=== PATIENT | male | born 1930 | race Caucasian/White ===

== ENCOUNTER 2018-08-07 03:59 | Emergency (ER) | payer MEDICARE, BC ==
--- NOTE | 2018-08-07 04:32 | EDM.PDOC ---
ED HPI GENERAL MEDICAL PROBLEM - General Chief Complaint: General Stated Complaint: [facility] Time Seen by Provider: 08/07/18 04:11 Source of Information: Reports: Patient, Family (Son), RN Notes Reviewed History Limitations: Reports: Physical Impairment (Very HO H) - History of Present Illness INITIAL COMMENTS - FREE TEXT/NARRATIVE: The patient is brought by ambulance for evaluation of left shoulder, right knee , and neck pain that began 2 days ago, 08/05/2018. His left shoulder and neck pain are new, and primarily present if the patient moves, whereas his right knee pain is chronic, although is now worse than usual, and also made worse with movement. No new injury. No recent fever, although the patient was diagnosed with a urinary tract yesterday and started on oral ciprofloxacin - the patient has BPH and needs to self catheterize. The patient has been taking [id number] Tylenol, and took a single tablet of leftover meperidine to treat his pain. He has not taken any NSAIDs. Despite chronic right knee pain, the patient has not previously had an evaluation, including x-rays, of his right knee. The patient's PCP is Dr. Murray, in [place], although he will also see Adriana Sanabria or Kimber Adkins at the [facility]. Left Arm Pain Score (Numeric/FACES): 5 Right Knee Pain Score (Numeric/FACES): 4 - Related Data Allergies Allergy/AdvReac Type Severity Reaction Status Date / Time No Known Allergies Allergy Verified 08/07/18 04:11 Home Meds: Home Meds Ciprofloxacin [Ciprofloxacin HCl] 500 mg PO BID 08/07/18 [History] Furosemide 40 mg PO DAILY 08/07/18 [History] Pindolol 5 mg PO BID PRN 08/07/18 [History] amLODIPine Besylate [Amlodipine Besylate] 10 mg PO DAILY 08/07/18 [History] Past Medical History HEENT History: Reports: Hard of Hearing (wears hearing aids) Cardiovascular History: Reports: Hypertension Genitourinary History: Reports: BPH Musculoskeletal History: Reports: Osteoarthritis - Past Surgical History HEENT Surgical History: Reports: Cataract Surgery, Eye Surgery (Right cornea transplant) GI Surgical History: Reports: Appendectomy Male Surgical History: Reports: Prostatectomy Social & Family History - Tobacco Use Smoking Status *Q: Former Smoker Years of Tobacco use: 54 Packs/Tins Daily: 1 Month/Year Tobacco Last Used: Quit around 1999 - Caffeine Use Caffeine Use: Reports: None - Alcohol Use Alcohol Use History: Yes Alcohol Use Frequency: Socially - Recreational Drug Use Recreational Drug Use: No - Living Situation & Occupation Living situation: Reports: , Alone Occupation: Retired ED ROS GENERAL - Review of Systems Review Of Systems: ROS reveals no pertinent complaints other than HPI. ED EXAM, GENERAL - Physical Exam Exam: See Below Exam Limited By: No Limitations General Appearance: Alert, WD/WN, No Apparent Distress Eye Exam: Bilateral Eye: EOMI, Normal Inspection Ears: Normal External Exam, Hearing Loss Nose: Normal Inspection Throat/Mouth: Normal Inspection, Normal Lips, Normal Voice, No Airway Compromise Head: Atraumatic, Normocephalic Neck: Normal Inspection, Limited Range of Motion Extremities: Other (The left shoulder may be somewhat swollen, when compared to the right, although no other visible abnormality, such as erythema, ecchymosis, or abrasion. No tenderness to palpation of the left shoulder, however, the patient reports pain "all over" with PROM, and states that the pain extends down his left upper extremity. Neurovascular status of the left upper extremity is intact. The right knee is swollen when compared to the left, although no other visible abnormality, such as erythema, ecchymosis, or abrasion. No significant tenderness to palpation of the right knee, however, there is significant pain to even minimal PROM. Neurovascular status of the right lower extremity is intact.) Neurological: Alert, Normal Cognition, No Motor/Sensory Deficits Psychiatric: Normal Affect Skin Exam: Warm, Dry, Intact, Normal Color, No Rash Course - Vital Signs Last Recorded V/S: Last Vital Signs Temp 36.3 C 08/07/18 04:05 Pulse 78 08/07/18 04:05 Resp 18 08/07/18 04:05 BP 142/80 H 08/07/18 04:05 Pulse Ox 80 L 08/07/18 04:05 - Orders/Labs/Meds Orders: Active Orders 24 hr Category Date Time Status Knee Min 4V Rt [CR] Stat Exams 08/07/18 04:25 Taken Shoulder Comp Lt [CR] Stat Exams 08/07/18 04:25 Taken CBC WITH MANUAL DIFF [HEME] Stat Lab 08/07/18 04:35 Results Ibuprofen [Motrin] Med 08/07/18 05:25 Once 600 mg PO ONETIME ONE Labs: Laboratory Tests 08/07/18 08/07/18 Range/Units 04:35 04:35 WBC 8.05 (4.23-9.07) K/mm3 RBC 4.26 L (4.63-6.08) M/mm3 Hgb 13.1 L (13.7-17.5) gm/L Hct 39.5 L (40.1-51.0) % MCV 92.7 H (79.0-92.2) fl MCH 30.8 (25.7-32.2) pg MCHC 33.2 (32.2-35.5) g/dl RDW Std Deviation 46.5 H (35.1-43.9) fL Plt Count 154 L (163-337) K/mm3 MPV 10.4 (9.4-12.3) fl Sodium 137 (136-145) mEq/L Potassium 3.7 (3.5-5.1) mEq/L Chloride 102 (98-107) mEq/L Carbon Dioxide 23 (21-32) mEq/L Anion Gap 15.7 H (5-15) BUN 15 (7-18) mg/dL Creatinine 1.0 (0.7-1.3) mg/dL Est Cr Clr Drug Dosing 61.03 mL/min Estimated GFR (MDRD) > 60 (>60) mL/min BUN/Creatinine Ratio 15.0 (14-18) Glucose 113 (83-115) mg/dL Calcium 9.0 (8.5-10.1) mg/dL Total Bilirubin 1.0 (0.2-1.0) mg/dL AST 11 L (15-37) U/L ALT 14 L (16-63) U/L Alkaline Phosphatase 83 (46-116) U/L C-Reactive Protein 13.0 H* (<1.0) mg/dL Total Protein 7.2 (6.4-8.2) g/dl Albumin 3.3 L (3.4-5.0) g/dl Globulin 3.9 gm/dL Albumin/Globulin Ratio 0.9 L (1-2) - Re-Assessments/Exams Free Text/Narrative Re-Assessment/Exam: 08/07/18 04:38 Without a new injury, I suspect that the pain that the patient has experiencing in his neck, left shoulder, and right knee, is related to inflammation, possibly related to his UTI. To that end, I have ordered x-rays of his left shoulder and right knee, which I anticipate will demonstrate arthritis, as well as blood work which may show signs of inflammation. 08/07/18 05:10 3-view radiographs of the left shoulder appear to show advanced degenerative changes. No fracture or dislocation identified. Formal read per the Radiologist pending. 4-view radiographs of the right knee appear to show advanced degenerative changes. No fracture or dislocation identified. Formal read per the Radiologist pending. 08/07/18 05:25 X-ray and test results discussed with the patient and his son. While the patient does not have an elevated WBC count, his CRP has returned substantially elevated at 13.0, consistent with systemic inflammation that I suspect is causing exacerbation of the patient's previously existing arthritis. At this time, I am recommending the patient take qiuh-npe-[id number] ibuprofen instead of Tylenol, and I suspect that his pain will improve as his urinary tract infection is treated. The patient may also be a candidate for steroid injection , therefore will refer the patient to Dr. Vazquez for further evaluation. Departure - Departure Time of Disposition: 05:27 Disposition: Home, Self-Care 01 Condition: Fair Clinical Impression: Arthritis of left shoulder region, Arthritis of neck, Arthritis of right knee - Discharge Information *PRESCRIPTION DRUG MONITORING PROGRAM REVIEWED*: Not Applicable *COPY OF PRESCRIPTION DRUG MONITORING REPORT IN PATIENT [place]: Not Applicable Referrals: Adriana Sanabria NP [Primary Care Provider] - Chuck Vazquez MD [Physician] - Trever Murray MD [Ordering Only Provider] - Forms: ED Department Discharge Additional Instructions: You were seen in the emergency room for neck, left shoulder, and right knee pain over the past 2 days. Workup in the ER included blood work and x-rays of her left shoulder and right knee. The x-rays showed advanced arthritis of your shoulder and knee, and your CRP, a marker of inflammation, was significantly elevated at 13.0. Based on your history, physical examination, and ER tests, the pain in your joints is most likely due to an exacerbation of the inflammation in her joints, likely related to your urinary tract infection. Your joint pain should improve as your urinary tract infection is treated, but in the meantime, we recommend that you take [id number]-[id number] ibuprofen, 2-3 tablets (400-600 mg) every 8 hours, with food, as needed for discomfort. We also recommend that you follow-up with the Orthopedic Surgeon Dr. Chuck Vazquez, to discuss the possibility of a steroid injection in one or more of your joints. If any other problems, please do not hesitate to return to the ER. - My Orders Last 24 Hours: My Active Orders 08/07/18 04:25 Knee Min 4V Rt [CR] Stat Shoulder Comp Lt [CR] Stat 08/07/18 04:35 CBC WITH MANUAL DIFF [HEME] Stat 08/07/18 05:25 Ibuprofen [Motrin] 600 mg PO ONETIME ONE - Assessment/Plan Last 24 Hours: My Active Orders 08/07/18 04:25 Knee Min 4V Rt [CR] Stat Shoulder Comp Lt [CR] Stat 08/07/18 04:35 CBC WITH MANUAL DIFF [HEME] Stat 08/07/18 05:25 Ibuprofen [Motrin] 600 mg PO ONETIME ONE
[2018-08-07] MEDS ORDERED: Ibuprofen 600 MG Tab PO ONE (05:25)
--- NOTE | 2018-08-07 07:05 | CR ---
Right knee: Four views of the right knee were obtained. Comparison: No prior knee exam. Moderate medial joint space narrowing is seen. Chondrocalcinosis is noted within the medial and lateral joints. Vascular calcification is seen. Bony structures are osteopenic. Small joint effusion is seen. No acute fracture, dislocation or other bony abnormality is identified. Impression: 1. Degenerative change and chondrocalcinosis. 2. Small joint effusion and other incidental findings. Diagnostic code #2
--- NOTE | 2018-08-07 07:05 | CR ---
Left shoulder: Three views of the left shoulder were obtained. Comparison: No previous study. Joint space narrowing is noted within the glenohumeral joint with mild inferior spurring. Osteopenia is seen. No acute fracture or dislocation is seen. Impression: 1. Degenerative change within the glenohumeral joint. 2. Osteopenia. Diagnostic code #2
== END 2018-08-07 06:00 | disposition home or self-care (01) ==
LOC: JD.ED 03:59
DX: M19.012 Primary osteoarthritis, left shoulder (principal); M47.892 Other spondylosis, cervical region; M17.11 Unilateral primary osteoarthritis, right knee; I10 Essential (primary) hypertension; Z87.891 Personal history of nicotine dependence; Z79.899 Other long term (current) drug therapy
CPT/HCPCS: 36415; 73030; 73564; 80053; 85007; 85027; 86140; 99284; A9270

== ENCOUNTER 2018-08-08 20:26 | Observation (INO) | payer MEDICARE, BC ==
[2018-08-08] MEDS ORDERED: cefTRIAXone 1 GM in Sodium Chloride 0.9% 100 ML IV ONE (21:02)
[2018-08-08] MEDS ORDERED: Sulfamethoxazole/Trimethoprim 800-160 MG Tab PO ONE (21:57)
[2018-08-08] MEDS ORDERED: Ibuprofen 600 MG Tab PO ONE (21:57)
--- NOTE | 2018-08-08 22:01 | EDM.PDOC ---
ED HPI GENERAL MEDICAL PROBLEM - General Chief Complaint: Genitourinary Problem Stated Complaint: INFECTION Time Seen by Provider: 08/08/18 20:47 Source of Information: Reports: Patient, Family (Son, [id number]), RN Notes Reviewed History Limitations: Reports: No Limitations Left Wrist Pain Score (Numeric/FACES): 7 - Related Data Allergies Allergy/AdvReac Type Severity Reaction Status Date / Time No Known Allergies Allergy Verified 08/08/18 20:46 Home Meds: Home Meds Ciprofloxacin [Ciprofloxacin HCl] 500 mg PO BID 08/07/18 [History] Furosemide 40 mg PO DAILY 08/07/18 [History] Pindolol 5 mg PO BID PRN 08/07/18 [History] amLODIPine Besylate [Amlodipine Besylate] 10 mg PO DAILY 08/07/18 [History] Past Medical History HEENT History: Reports: Hard of Hearing (wears hearing aids) Other HEENT History: uses ARNETT Cardiovascular History: Reports: Heart Murmur, Hypertension Genitourinary History: Reports: BPH Musculoskeletal History: Reports: Arthritis - Past Surgical History HEENT Surgical History: Reports: Cataract Surgery, Other (See Below) Social & Family History - Caffeine Use Caffeine Use: Reports: None - Living Situation & Occupation Living situation: Reports: , Alone Occupation: Retired Course - Vital Signs Last Recorded V/S: Last Vital Signs Temp 37.3 C 08/08/18 20:42 Pulse 73 08/08/18 20:42 Resp 16 08/08/18 20:42 BP 151/88 H 08/08/18 20:42 Pulse Ox 96 08/08/18 20:42 - Orders/Labs/Meds Meds: Medications Discontinued Medications Generic Name Dose Route Start Last Admin Trade Name Freq PRN Reason Stop Dose Admin Ceftriaxone Sodium 1 gm/ 100 mls @ 200 mls/hr 08/08/18 21:02 08/08/18 21:33 Sodium Chloride IV 08/08/18 21:31 200 mls/hr ONETIME ONE Administration Ibuprofen 600 mg 08/08/18 21:57 Motrin PO 08/08/18 21:58 ONETIME ONE Trimethoprim/Sulfamethoxazole 1 tab 08/08/18 21:57 Septra Ds PO 08/08/18 21:58 ONETIME ONE - Re-Assessments/Exams Free Text/Narrative Re-Assessment/Exam: 08/08/18 22:01 As was the case when I saw the patient yesterday morning, 08/07/2018, the patient has increased pain in numerous joints, that appears to be due to increased inflammation related to his urinary tract infection. Ibuprofen has been working for him, however, he has not taken any ibuprofen since noon today. Now that we know that the UTIs due to Escherichia coli, multiply susceptible, resistant to fluoroquinolones, the patient is receiving 1 g of Rocephin IV, and I will start oral Bactrim, as well. The patient's son and [id number] are concerned about the patient going home tonight, and considering the patient's age, I believe it is reasonable to keep him overnight to make sure that he is improving before being discharged home. His case was discussed with Dr. Magaña at 21:58. She agreed to place the patient into observation. Departure - Departure Time of Disposition: 22:05 Disposition: Refer to Observation Condition: Fair Clinical Impression: UTI (urinary tract infection), Arthritis of left shoulder region, Arthritis of neck, Arthritis of right knee - Discharge Information *PRESCRIPTION DRUG MONITORING PROGRAM REVIEWED*: Not Applicable *COPY OF PRESCRIPTION DRUG MONITORING REPORT IN PATIENT [place]: Not Applicable Referrals: Kimber Adkins PA-C [Primary Care Provider] -
[2018-08-09] MEDS ORDERED: Sodium Chloride 0.9% 1,000 ML ONE ×3 (00:03)
[2018-08-09] MEDS ORDERED: Ibuprofen 600 MG Tab ONE ×3 (04:40)
[2018-08-09] MEDS ORDERED: Ibuprofen 600 MG Tab PO PRN (08:24)
[2018-08-09] MEDS ORDERED: Temazepam 7.5 MG Cap PO PRN ×2 (08:25→09:32)
[2018-08-09] MEDS ORDERED: cefTRIAXone 2 GM in Sodium Chloride 0.9% 100 ML IV ONE ×2 (09:00→09:45)
--- NOTE | 2018-08-09 09:12 | PCM.HP ---
H&P History of Present Illness - General Date of Service: 08/09/18 Admit Problem/Dx: Admission Diagnosis/Problem Admission Diagnosis/Problem UTI (urinary tract infection), uncomplicated Source of Information: Patient, Provider - History of Present Illness Initial Comments - Free Text/Narative: 87 year old male with recently diagnosed UTI, started on Cipro as an outpatient. Reportedly called to return to our ED for reassessment and change in treatment plan, urine culture organism was resistant to Cipro. 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 The patient is admitted to obs with telemetry. He complains of joint discomfort, he has not taken his usual dose of a NSAID. Onset of Symptoms: Reports: Unknown/Unsure Duration of Symptoms: Reports: Day(s):, Getting Worse Location: Reports: Abdomen, Generalized Quality: Reports: Same as Previous Episode Severity: Moderate Improves with: Reports: Medication Worsens with: Reports: None Associated Symptoms: Reports: Weakness Left Wrist Pain Score (Numeric/FACES): 7 - Related Data Allergies/Adverse Reactions: Allergies Allergy/AdvReac Type Severity Reaction Status Date / Time No Known Allergies Allergy Verified 08/09/18 08:30 Home Medications: Home Meds Furosemide 40 mg PO DAILY 08/07/18 [History] Pindolol 5 mg PO BID PRN 08/07/18 [History] amLODIPine Besylate [Amlodipine Besylate] 10 mg PO DAILY 08/07/18 [History] Acyclovir 400 mg PO DAILY 08/09/18 [History] Ascorbic Acid/Ascorbate Sodium [Vitamin C 500 mg Wafer] 1,000 mg PO DAILY [History] Brimonidine Tartrate/Timolol [Combigan 0.2%-0.5% Eye Drops] 1 drop OP DAILY 08/25 [History] [place]-3 Fatty Acids/Fish Oil [Fish Oil 1,200 mg Softgel] 2,400 mg PO DAILY 08/09 [History] Prednisolone Acetate/Pf [Prednisolone Acet 1% Eye Drop] 1 drop OP BEDTIME [History] Past Medical History HEENT History: Reports: Hard of Hearing Other HEENT History: uses ARNETT- has a cochlear impant, upper denture Cardiovascular History: Reports: Heart Murmur, Hypertension Respiratory History: Reports: Other (See Below) Other Respiratory History: wears a cpap machine at night Genitourinary History: Reports: BPH, Other (See Below) Other Genitourinary History: pt self caths at home QID Musculoskeletal History: Reports: Arthritis Endocrine/Metabolic History: Reports: None - Infectious Disease History Infectious Disease History: Reports: Influenza - Past Surgical History HEENT Surgical History: Reports: Cataract Surgery Cardiovascular Surgical History: Reports: None Respiratory Surgical History: Reports: None GI Surgical History: Reports: Appendectomy Musculoskeletal Surgical History: Reports: None Social & Family History - Family History Family Medical History: Noncontributory - Tobacco Use Smoking Status *Q: Former Smoker Years of Tobacco use: 40 Used Tobacco, but Quit: No Second Hand Smoke Exposure: No - Caffeine Use Caffeine Use: Reports: Coffee - Recreational Drug Use Recreational Drug Use: No - Living Situation & Occupation Living situation: Reports: , Alone Occupation: Retired H&P Review of Systems - Review of Systems: Review Of Systems: See Below General: Reports: Weakness HEENT: Reports: No Symptoms Pulmonary: Reports: No Symptoms Cardiovascular: Reports: No Symptoms Gastrointestinal: Reports: No Symptoms Genitourinary: Reports: Frequency Musculoskeletal: Reports: No Symptoms Skin: Reports: No Symptoms Psychiatric: Reports: No Symptoms Neurological: Reports: No Symptoms Hematologic/Lymphatic: Reports: No Symptoms Immunologic: Reports: No Symptoms Exam - Exam Exam: See Below - Vital Signs Vital Signs: Last Vital Signs Temp 36.2 C 08/09/18 08:20 Pulse 55 L 08/09/18 08:20 Resp 24 H 08/09/18 08:20 BP 128/83 08/09/18 08:20 Pulse Ox 90 L 08/09/18 08:20 Weight: 106.413 kg - Exam Quality Assessment: DVT Prophylaxis General: Alert, Oriented, Cooperative HEENT: Conjunctiva Clear, Nares Patent, Normal Nasal Septum, Pupils Equal, Pupils Reactive, PERRLA Neck: Trachea Midline Lungs: Normal Respiratory Effort Cardiovascular: Regular Rate GI/Abdominal Exam: Normal Bowel Sounds, Soft, Non-Tender, No Organomegaly, No Distention (Male) Exam: Deferred Rectal (Males) Exam: Deferred Back Exam: Normal Inspection Extremities: Normal Inspection, Non-Tender, Normal Capillary Refill Skin: Warm Neurological: Cranial Nerves Intact, Normal Gait, Normal Speech Neuro Extensive - Mental Status: Alert, Oriented x3 Neuro Extensive - Motor, Sensory, Reflexes: CN II-XII Intact Psychiatric: Alert, Normal Affect, Normal Mood - Patient Data Result Diagrams: 08/09/18 06:48 08/09/18 06:48 Problem List Initiated/Reviewed/Updated: Yes Orders Last 24hrs: Active Orders 24 hr Category Date Time Status Admission Status [Patient Status] [ADT] Routine ADT 08/08/18 22:08 Active Full Liquid Diet [DIET] Diet 08/09/18 Lunch Active Ibuprofen [Motrin] Med 08/09/18 08:24 Active 600 mg PO Q8H PRN Temazepam [Restoril] Med 08/09/18 08:25 Active 7.5 mg PO BEDTIME PRN cefTRIAXone [Rocephin] 2 gm Med 08/09/18 09:00 Active Sodium Chloride 0.9% [Normal Saline] 100 ml IV ONETIME Code Status [Resuscitation Status] Routine Resus Stat 08/09/18 08:25 Ordered Medication Orders Ceftriaxone Sodium 2 gm/ (Sodium Chloride) 100 mls @ 200 mls/hr IV ONETIME ONE Stop: 08/09/18 09:29 Ibuprofen (Motrin) 600 mg PO Q8H PRN PRN Reason: Pain Temazepam (Restoril) 7.5 mg PO BEDTIME PRN PRN Reason: Sleep Assessment/Plan Comment:: Impression: Outpatient ATB failure for AUTI Arthritis with uncontrolled pain; LUE, Neck, RLE Chronic HTN BPH Query glaucoma Plan: IVF Continue Rocephin DC 24 hours to home Consult CM, PT/OT Home meds Daily labs DVT/GI prophylaxis MR from PCP.
[2018-08-09] MEDS ORDERED: 50% Dextrose in Water 50 ML Syringe IVPUSH PRN (10:14)
[2018-08-09] MEDS ORDERED: hydrALAZINE 20 MG/ML SDV IVPUSH PRN (10:14)
[2018-08-09] MEDS ORDERED: NS + KCl 20mEq/L 1,000 ML IV SCH (11:00)
[2018-08-09] MEDS ORDERED: Ketorolac 60 MG/2 ML SDV IM ONE (11:09)
[2018-08-09] MEDS ORDERED: HYDROmorphone 1 MG/ML Syringe IVPUSH PRN (11:10)
[2018-08-09] MEDS ORDERED: Ketorolac 60 MG/2 ML SDV ONE (11:11)
[2018-08-09] MEDS: Ketorolac 15 MG/ML SDV IVPUSH SCH ×2 (15:00→23:53)
[2018-08-09] MEDS: Potassium Chloride 20 MEQ Tab.ER PO SCH ×2 (15:01→21:19)
[2018-08-09] MEDS ORDERED: TIMOLOL OP SCH (15:30)
[2018-08-09] MEDS ORDERED: BRIMONIDINE TARTRATE OP SCH (15:30)
[2018-08-09] MEDS: Insulin Lispro 100 Units/ML 3 ML Vial SUBCUT SCH ×2 (18:03→21:55)
[2018-08-09] MEDS ORDERED: prednisoLONE Acetate 1% Ophth Susp 5 ML Bottle EYERT SCH (21:00)
[2018-08-09] MEDS: Ibuprofen 600 MG Tab PO PRN (21:19)
[2018-08-09] MEDS: Gabapentin 100 MG Cap PO SCH (21:19)
[2018-08-10] MEDS: Ketorolac 15 MG/ML SDV IVPUSH SCH (06:34)
[2018-08-10] MEDS: Insulin Lispro 100 Units/ML 3 ML Vial SUBCUT SCH ×2 (06:48→11:45)
[2018-08-10] MEDS: Ibuprofen 600 MG Tab PO PRN (08:41)
[2018-08-10] MEDS: Gabapentin 100 MG Cap PO SCH (08:43)
[2018-08-10] MEDS ORDERED: Timolol Maleate 0.5% Ophth Soln 5 ML Bottle EYERT SCH (09:00)
[2018-08-10] MEDS ORDERED: Brimonidine 0.2% Ophth Soln 5 ML Bottle EYERT SCH (09:00)
[2018-08-10] MEDS ORDERED: Acyclovir 200 MG Cap PO SCH (09:00)
[2018-08-10] MEDS ORDERED: Enoxaparin 40 MG/0.4 ML Syringe SUBCUT SCH (10:00)
[2018-08-10] MEDS ORDERED: Tamsulosin 0.4 MG Cap.ER PO SCH (10:00)
--- NOTE | 2018-08-10 11:26 | PCM.DCSUM1 ---
Discharge Summary - Hospital Course Free Text/Narrative:: 87 year old male presented after being informed that his UTI treatment was ineffective. The organism was resistant to the treatment. he was hydrated and received to days of IV Rocephin during his observation stay. The patient was DCd to home. he will follow up with his PCP who will likely prescribe OP PT as directed. HPI Initial Comments: 87 year old male with recently diagnosed UTI, started on Cipro as an outpatient. Reportedly called to return to our ED for reassessment and change in treatment plan, urine culture organism was resistant to Cipro. It is sensitive to Rocephin, it was started last night [employer]. The patient is admitted to obs with telemetry. He complains of joint discomfort, he has not taken his usual dose of a NSAID. Diagnosis: Stroke: No - Discharge Data Discharge Date: 08/10/18 Discharge Disposition: Home, Self-Care 01 Condition: Good - Patient Summary/Data Consults: Consultations 08/10/18 09:00 Consult to Physical Therapy [PT Evaluation and Treatment] [CONS] Routine 08/10/18 09:30 Consult to Occupational Therapy [OT Evaluation and Treatment] [CONS] Routine - Patient Instructions Diet: Heart Healthy Diet Activity: As Tolerated Driving: Do Not Drive Showering/Bathing: May Shower Notify Provider of: Fever, Increased Pain, Nausea and/or Vomiting - Discharge Plan *PRESCRIPTION DRUG MONITORING PROGRAM REVIEWED*: Not Applicable *COPY OF PRESCRIPTION DRUG MONITORING REPORT IN PATIENT [place]: Not Applicable Prescriptions/Med Rec: cephALEXin [Keflex] 500 mg PO Q8H #21 cap Ibuprofen [Motrin] 600 mg PO Q12H PRN #20 tablet PRN Reason: Pain Saccharomyces Boulardii [Florastor] 250 mg PO DAILY #14 cap Tamsulosin [Flomax] 0.4 mg PO PCBREAKFAST #30 cap.er Home Medications: Home Meds Furosemide 40 mg PO DAILY 08/07/18 [History] Pindolol 5 mg PO BID PRN 08/07/18 [History] amLODIPine Besylate [Amlodipine Besylate] 10 mg PO DAILY 08/07/18 [History] Acyclovir 400 mg PO DAILY 08/09/18 [History] Ascorbic Acid/Ascorbate Sodium [Vitamin C 500 mg Wafer] 1,000 mg PO DAILY [History] Brimonidine Tartrate/Timolol [Combigan 0.2%-0.5% Eye Drops] 1 drop OP DAILY 08/25 [History] Windfall-3 Fatty Acids/Fish Oil [Fish Oil 1,200 mg Softgel] 2,400 mg PO DAILY 08/09 [History] Prednisolone Acetate/Pf [Prednisolone Acet 1% Eye Drop] 1 drop OP BEDTIME [History] Ibuprofen [Motrin] 600 mg PO Q12H PRN #20 tablet 08/10/18 [Rx] Saccharomyces Boulardii [Florastor] 250 mg PO DAILY #14 cap 08/10/18 [Rx] Tamsulosin [Flomax] 0.4 mg PO PCBREAKFAST #30 cap.er 08/10/18 [Rx] cephALEXin [Keflex] 500 mg PO Q8H #21 cap 08/10/18 [Rx] Patient Handouts: Urinary Tract Infection, Adult, [id number], What You Need to Know About Osteoarthritis Referrals: Kimber Adkins PA-C [Primary Care Provider] - 08/18/18 9:00 am - Discharge Summary/Plan Comment DC Time >30 min.: No Discharge Summary/Plan Comment: Impression: 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 Chronic HTN BPH Query glaucoma Plan: IVF Rocephin-->change to Keflex 500 mg Q 8H DC 24 hours to home Consult CM, PT/OT Home meds Daily labs DVT/GI prophylaxis MR from PCP. - General Info Date of Service: 08/09/18 Functional Status: Reports: Pain Controlled, Tolerating Diet, Ambulating, Urinating - Review of Systems General: Reports: No Symptoms HEENT: Reports: No Symptoms Pulmonary: Reports: No Symptoms Cardiovascular: Reports: No Symptoms Gastrointestinal: Reports: No Symptoms Genitourinary: Reports: No Symptoms Musculoskeletal: Reports: No Symptoms Skin: Reports: No Symptoms Neurological: Reports: No Symptoms Psychiatric: Reports: No Symptoms - Patient Data Vitals - Most Recent: Last Vital Signs Temp 37.1 C 08/10/18 07:42 Pulse 72 08/10/18 07:42 Resp 18 08/10/18 07:42 BP 129/71 08/10/18 07:42 Pulse Ox 91 L 03/04/19 08:56 Weight - Most Recent: 111.629 kg I&O - Last 24 hours: Intake & Output 08/09/18 08/10/18 08/10/18 22:59 06:59 14:59 Intake Total 2006 836 360 Output Total 800 600 Balance 1207 236 360 Lab Results - Last 24 hrs: Laboratory Results - last 24 hr 08/09/18 08/09/18 08/09/18 Range/Units 12:37 17:31 21:30 POC Glucose 128 H 106 125 H (83-110) mg/dL 08/10/18 08/10/18 Range/Units 06:41 11:00 POC Glucose 114 H 112 H (83-110) mg/dL Med Orders - Current: Current Medications Acyclovir (Zovirax) 400 mg PO DAILY [facility] Last Admin: 08/10/18 08:42 Dose: 400 mg Brimonidine Tartrate (Alphagan 0.2% Ophth Soln) 0 ml EYERT DAILY [facility] Last Admin: 08/10/18 08:40 Dose: 1 drop Enoxaparin Sodium (Lovenox) 40 mg SUBCUT Q24H [facility] Last Admin: 08/10/18 10:02 Dose: 40 mg Gabapentin (Neurontin) 100 mg PO BID [facility] Last Admin: 08/10/18 08:43 Dose: 100 mg Hydralazine HCl (Apresoline) 10 mg IVPUSH Q6H PRN PRN Reason: Hypertension Hydromorphone HCl (Dilaudid) 0.25 mg IVPUSH Q6H PRN PRN Reason: Pain (moderate 4-6) Ibuprofen (Motrin) 600 mg PO Q8H PRN PRN Reason: Pain Last Admin: 08/10/18 08:41 Dose: 600 mg Insulin Human Lispro (Humalog) 0 unit SUBCUT QIDACANDBED [facility]; Protocol Last Admin: 08/10/18 06:48 Dose: Not Given Ketorolac Tromethamine (Toradol) 15 mg IVPUSH Q8H [facility] Stop: 08/11/18 07:31 Last Admin: 08/10/18 06:34 Dose: 15 mg Prednisolone Acetate (Pred Forte 1% Ophth Susp) 0 ml EYERT BEDTIME [facility] Last Admin: 08/09/18 21:20 Dose: 1 dose Tamsulosin HCl (Flomax) 0.4 mg PO PCBREAKFAST [facility] Last Admin: 08/10/18 09:03 Dose: 0.4 mg Temazepam (Restoril) 7.5 mg PO BEDTIME PRN PRN Reason: Sleep Timolol Maleate (Timoptic 0.5% Ophth Soln) 0 ml EYERT DAILY [facility] Last Admin: 08/10/18 08:44 Dose: 1 drop Discontinued Medications Dextrose/Water (Dextrose 50% In Water) 50 ml IVPUSH ASDIRECTED PRN PRN Reason: Hypoglycemia Ceftriaxone Sodium 1 gm/ (Sodium Chloride) 100 mls @ 200 mls/hr IV ONETIME ONE Stop: 08/08/18 21:31 Last Admin: 08/08/18 21:33 Dose: 200 mls/hr Ceftriaxone Sodium 2 gm/ (Sodium Chloride) 100 mls @ 200 mls/hr IV ONETIME ONE Stop: 08/09/18 09:29 Last Admin: 08/09/18 10:19 Dose: 200 mls/hr Ceftriaxone Sodium 2 gm/ (Sodium Chloride) 100 mls @ 200 mls/hr IV ONETIME ONE Stop: 08/09/18 10:14 Last Admin: 08/09/18 14:45 Dose: Not Given Potassium Chloride/Sodium Chloride (Normal Saline With 20 Meq Kcl) 1,000 mls @ 125 mls/hr IV ASDIRECTED [facility] Stop: 08/09/18 19:00 Last Admin: 08/09/18 11:14 Dose: 125 mls/hr Sodium Chloride (Normal Saline) Confirm Administered Dose 1,000 mls @ as directed .ROUTE .ST-MED ONE Stop: 08/09/18 00:04 Last Admin: 08/09/18 14:42 Dose: Not Given Sodium Chloride (Normal Saline) Confirm Administered Dose 1,000 mls @ as directed .ROUTE .STK-MED ONE Stop: 08/09/18 00:04 Last Admin: 08/09/18 14:43 Dose: Not Given Sodium Chloride (Normal Saline) Confirm Administered Dose 1,000 mls @ as directed .ROUTE .STK-MED ONE Stop: 08/09/18 00:04 Last Admin: 08/09/18 14:43 Dose: Not Given Ibuprofen (Motrin) 600 mg PO ONETIME ONE Stop: 08/08/18 21:58 Last Admin: 08/08/18 22:07 Dose: 600 mg Ibuprofen (Motrin) 600 mg PO Q8H PRN PRN Reason: Pain Ibuprofen (Motrin) Confirm Administered Dose 600 mg .ROUTE .STK-MED ONE Stop: 08/09/18 04:41 Last Admin: 08/09/18 14:43 Dose: Not Given Ibuprofen (Motrin) Confirm Administered Dose 600 mg .ROUTE .STK-MED ONE Stop: 08/09/18 04:41 Last Admin: 08/09/18 14:43 Dose: Not Given Ibuprofen (Motrin) Confirm Administered Dose 600 mg .ROUTE .STK-MED ONE Stop: 08/09/18 04:41 Last Admin: 08/09/18 14:44 Dose: Not Given Ketorolac Tromethamine (Toradol) 60 mg IM ONETIME ONE Stop: 08/09/18 11:10 Last Admin: 08/09/18 11:15 Dose: 60 mg Ketorolac Tromethamine (Toradol) Confirm Administered Dose 60 mg .ROUTE .STK- MED ONE Stop: 08/09/18 11:12 Last Admin: 08/09/18 14:45 Dose: Not Given Non-Formulary Medication (Brimonidine Tartrate/Timolol) 1 drop OP DAILY [facility] Last Admin: 08/10/18 09:32 Dose: Not Given Potassium Chloride (Klor-Con M20) 40 meq PO BID [facility] Stop: 08/09/18 21:01 Last Admin: 08/09/18 21:19 Dose: 40 meq Temazepam (Restoril) 7.5 mg PO BEDTIME PRN PRN Reason: Sleep Trimethoprim/Sulfamethoxazole (Septra Ds) 1 tab PO ONETIME ONE Stop: 08/08/18 21:58 Last Admin: 08/08/18 22:07 Dose: 1 tab - Exam Quality Assessment: Reports: DVT Prophylaxis General: Reports: Alert, Oriented, Cooperative, No Acute Distress HEENT: Reports: Pupils Equal, Pupils Reactive, EOMI Neck: Reports: Trachea Midline, No JVD Lungs: Reports: Clear to Auscultation, Normal Respiratory Effort Cardiovascular: Reports: Regular Rate, Regular Rhythm GI/Abdominal Exam: Normal Bowel Sounds, Soft, Non-Tender, No Organomegaly, No Distention (Male) Exam: Deferred Rectal (Males) Exam: Deferred Back Exam: Reports: Normal Inspection Extremities: Normal Inspection, Non-Tender, Normal Capillary Refill Skin: Reports: Warm Neurological: Reports: No New Focal Deficit, Normal Gait, Normal Speech Psy/Mental Status: Reports: Alert, Normal Affect, Normal Mood
[2018-08-10] MEDS ORDERED: cefTRIAXone 2 GM in Sodium Chloride 0.9% 100 ML IV ONE (11:45)
[2018-08-11] MEDS ORDERED: Saccharomyces Boulardii (Probiotic) 250 MG Cap PO SCH (09:00)
[2018-08-11] MEDS ORDERED: Cephalexin 500 MG Cap PO SCH (13:00)
== END 2018-08-10 14:48 | disposition home or self-care (01) ==
LOC: JD.ED 20:26 → JD.MS 22:08
PROVIDERS: ADMIT Internal Medicine Cardiovascular Disease; ATTEND Internal Medicine Cardiovascular Disease
DX: N39.0 Urinary tract infection, site not specified (principal); I10 Essential (primary) hypertension; M19.012 Primary osteoarthritis, left shoulder; M17.11 Unilateral primary osteoarthritis, right knee; N40.0 Benign prostatic hyperplasia without lower urinary tract symptoms; Z87.891 Personal history of nicotine dependence; Z79.2 Long term (current) use of antibiotics; Z79.899 Other long term (current) drug therapy
CPT/HCPCS: 36415; 80048; 82962; 83036; 83605; 83735; 85007; 85027; 86140; 96365; 97110; 97150; 97161; 97166; 99284; A9270; J0696; J1650; J1885; J3480; J7030; 96361; 96366; 96372; 96375; 96376; G0378